=== PATIENT | male | born 1955 | race Caucasian/White ===

== ENCOUNTER → 2016-12-24 | Outpatient (CLI) | payer BC ==
[2016-12-24 13:16] LABS: HEMATOCRIT 45.4 % (42-52); MEAN CELL VOLUME 95.4 fL (80-100); MEAN CORPUSCULAR HEMOGLOBIN 30.7 pg (25-34); MEAN CORPUSCULAR HGB CONC 32.2 g/dl (32-36); MEAN PLATELET VOLUME 10.8 fL (7.4-10.4); PLATELET COUNT 283 K/uL (130-400); RED BLOOD COUNT 4.76 M/uL (4.7-6.1); WHITE BLOOD COUNT 6.92 K/uL (4.8-10.8)
[2016-12-24 13:59] LABS: BLOOD UREA NITROGEN 11 mg/dl (7-18); BUN/CREATININE RATIO 9.3 (10-20); CALCIUM 9.2 mg/dl (8.5-10.1); CARBON DIOXIDE 27 mmol/L (21-32); CHLORIDE 106 mmol/L (98-107); CHOLESTEROL 216 mg/dl (0-200); GLUCOSE 91 mg/dl (70-99); SODIUM 139 mmol/L (136-145)
[2016-12-24 14:04] LABS: CHOLESTEROL/HDL RATIO 3.6; HDL CHOLESTEROL 60 mg/dl; LDL CHOLESTEROL CALCULATED 116 mg/dl; TRIGLYCERIDES 200 mg/dl (0-150); VERY LOW DENSITY LIPOPROT CALC 40 mg/dl
== END | disposition home or self-care (01) ==
LOC: C.LABSPEC 11:59
PROVIDERS: ATTEND Internal Medicine
DX: Z12.5 Encounter for screening for malignant neoplasm of prostate (principal); Z13.1 Encounter for screening for diabetes mellitus; K22.2 Esophageal obstruction; E78.5 Hyperlipidemia, unspecified

== ENCOUNTER → 2017-03-21 | Outpatient (CLI) | payer BC | END | disposition home or self-care (01) | LOC: C.LAB1850 13:26 | PROVIDERS: ATTEND Internal Medicine | DX: R97.20 Elevated prostate specific antigen [PSA] (principal) ==

== ENCOUNTER → 2017-06-18 | Outpatient (CLI) | payer BC | END | disposition home or self-care (01) | LOC: C.PATHSPEC 17:45 | PROVIDERS: ATTEND Urology | DX: C61 Malignant neoplasm of prostate (principal) ==

== ENCOUNTER → 2017-10-21 | Outpatient (CLI) | payer BC, OTHER ==
[~2017-10-21] MED LIST: GADAVIST IV PRN; MULT-506 PO; PRLSR20 PO
--- NOTE | 2017-10-21 09:56 | DIAGNOSTIC IMAGING REPORT ---
PROSTATE MRI WITH AND WITHOUT INTRAVENOUS CONTRAST HISTORY: Prostate cancer. Evaluate Hydrogel placement TECHNIQUE: Multiplanar multisequence MRI of the pelvis was performed both before and after the intravenous administration of contrast. COMPARISON STUDY: None. FINDINGS: The patient is status post placement of a hydrogel spacer. The gel is midline between the prostate gland and rectum with an average thickness of approximately 8 mm. The visualized bladder is unremarkable. The prostate gland measures approximately 5.1 x 3.0 x 4.1 cm in size. The rectum is within normal limits. No pelvic lymphadenopathy. Tiny fat-containing bilateral inguinal hernias. Small bilateral hydroceles. No suspicious osseous lesions. Evaluation of the prostate gland for a lesion is nondiagnostic due to the metallic artifact from the left hip prosthesis. IMPRESSION: The patient is status post placement of a hydrogel spacer. The gel is midline between the prostate gland and rectum with an average thickness of approximately 8 mm. Electronically signed by: Denzel Garrido M.D. 10/21/2017 9:54 AM Dictated Date/Time: 10/21/2017 9:50 AM
== END | disposition home or self-care (01) ==
LOC: C.MRIBC 07:50
PROVIDERS: ATTEND Physician Assistant Medical
DX: C61 Malignant neoplasm of prostate (principal)

== ENCOUNTER 2019-05-14 16:59 | Observation (INO) ==
[2019-05-14] MEDS ORDERED: ASPIRIN CHEW 324 MG PO STA (17:30)
[2019-05-14] MEDS ORDERED: SODIUM CHLORIDE 0.9% 1000ML 1,000 ML IV SCH (17:30)
[2019-05-14 17:37] LABS: Basophils # (auto) 0.03 K/uL (0-0.2); Basophils % (auto) 0.4 %; Eosinophils # (auto) 0.49 K/uL (0-0.5); Eosinophils % (auto) 6.5 %; Hematocrit (blood only) 43.5 % (42-52); Hemoglobin 14.5 g/dL (14.0-18.0); Immature Granulocytes # (auto) 0.01 K/uL (0.00-0.02); Immature Granulocytes % (auto) 0.1 %; Lymphocytes # (auto) 2.03 K/uL (1.2-3.4); Lymphocytes % (auto) 27.1 %; Mean Corpuscular Hemoglobin 32.2 pg (25-34); Mean Corpuscular Hgb Conc 33.3 g/dL (32-36); Mean Corpuscular Volume 96.7 fL (80-100); Monocytes # (auto) 0.76 K/uL (0.11-0.59); Monocytes % (auto) 10.1 %; Neutrophils # (auto) 4.18 K/uL (1.4-6.5); Neutrophils % (auto) 55.8 %; Platelet Count 237 K/uL (130-400); RDW Coefficient of Variation 13.8 % (11.5-14.5)
[2019-05-14 17:48] LABS: Partial Thromboplastin Ratio 0.9; Partial Thromboplastin Time 24.2 Seconds (21.0-31.0); Prothrombin Time 10.3 Seconds (9.0-12.0)
[2019-05-14 17:58] LABS: Albumin Globulin Ratio 0.9 (0.9-2); Albumin Level 3.7 gm/dl (3.4-5.0); BUN Creatinine Ratio 10.9 (10-20); Bilirubin,Total 0.4 mg/dl (0.2-1); Calcium 9.1 mg/dl (8.5-10.1); Creatinine Clr Calc Pharmacy 59.6 ml/min; Est GFR (African American) 63.6; Est GFR (Non-African American) 54.9; Globulin 4.2 gm/dl (2.5-4.0); Total Protein 7.9 gm/dl (6.4-8.2); Troponin I 0.067 ng/ml (0-0.045)
--- NOTE | 2019-05-14 18:17 | XRay Report ---
XR chest 1V portable CLINICAL HISTORY: Chest Pain dyspnea COMPARISON STUDY: No previous studies for comparison. FINDINGS: The bones soft tissues and hemidiaphragms are normal. The cardiomediastinal silhouette is n ormal. The lungs are clear. The pulmonary vasculature is normal. IMPRESSION: Negative chest. ACT 112: Negative or not required by law. The above report was generated using voice recognition software. It may contain grammatical, syntax or spelling errors. Electronically signed by: Fran Song M.D. 05/14/2019 6:16 PM
[2019-05-14 18:28] LABS: Potassium 3.9 mmol/L (3.5-5.1)
[2019-05-14] MEDS ORDERED: HEPARIN SODIUM/DEXTROSE 25,000 UNITS/500 ML BAG IV SCH (18:30)
[2019-05-14] MEDS: Heparin IV Low Dose WITH Bolus IV STA ×2 (18:40→18:49)
[2019-05-14] MEDS ORDERED: HEPARIN SOD 5,000 UNIT/0.5 ML VIAL ONE (18:44)
--- NOTE | 2019-05-14 21:25 | History & Physical Report ---
Date of Service May 14, 2019 Assessment & Plan (1) Non-ST elevation MS (NSTEMI): Admit to PCU on telemetry. Vital signs every [address] Consult cardi[address] for ST segment and T wave abnormalities and possible NSTEMI. Troponin x3 with EKG. Started heparin drip in the ER for elevated troponin. Trend down troponin. Given aspirin 324 in the ER. Continue aspirin 81 daily. Continue telemetry. DVT prophylaxis patient is on heparin drip. TTE pending Full code. Present on Admission?: Yes (2) Hyperlipidemia: Fasting lipid panel in a.m. Pending on the results start statins. Patient was on statins before. Present on Admission?: Yes (3) GERD (gastroesophageal reflux disease): Stable, continue omeprazole 20 mg p.o. daily as needed. Present on Admission?: Yes History of Present Illness Chief Complaint: Shortness of breath Primary Care Provider: Benny Neumann MD The patient is a 65 years old male with past medical history of hyperlipidemia, GERD, prostate cancer, esophageal stricture who presents to the emergency room stating that he is often short of breath in the past 3 weeks. 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 Patient denies gaining any weight. Patient denies fever, chills, chest pain, shortness of breath, abdominal pain, frequency, urgency. Patient reports ST segment and T waves abnormalities seen before on the prior EKGs and he reports having very extensive evaluation and stress testing in the past for it. 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 Labs are reviewed: WBC 7.5, hemoglobin 14.5, hematocrit 43.5, platelets 237, PT 10.3, INR 1, APTT 24.2. Sodium 138, potassium 3.9, chloride 106, carbon dioxide 26, anion gap 6, BUN 15, creatinine 1.37, GFR 54.9, AST 11, ALT 34, troponin 0.0 67, total protein 7.9, albumin 3.7, globulin 4.2, lipase 417. Chest x-ray negative, lungs are clear. EKG reviewed and compared with the previous EKG. Shows sinus rhythm with first-degree AV block and ST and T wave abnormality possible anterolateral ischemia. Decision was made to admit patient to the PCU on telemetry and to rule out NSTEMI Allergies Allergy/AdvReac Type Severity Reaction Status Date / Time No Known Allergies Allergy Verified 05/14/19 17:35 Home Medications Home Medications Medication Instructions Recorded Confirmed Type omeprazole 20 mg PO DAILY PRN 05/14/19 05/14/19 History Past Med/Surg History Medical History Esophageal stricture GERD (gastroesophageal reflux disease) Hyperlipidemia Nephrolithiasis Surgical History History of throat surgery S/P hip replacement Family History Father Myocardial infarction Dementia Grandfather (Maternal) Myocardial infarction Grandfather (Paternal) Myocardial infarction Mother Brain cancer Denies family history of Ovarian cancer Prostate cancer Breast cancer Lung cancer Colorectal cancer Stroke Social History Preferred Language: Yakut Communication Ability: Effective Visual Impairment: No Limitations Hearing Ability: Normal Budget Controller Required: No Beliefs That Will Affect Care: None Feels Safe at Home: Yes Smoking Status: Never smoker Second Hand Exposure: No ; Hx Alcohol Use: Yes Alcohol type: beer Alcohol Intake Frequency: Weekly Hx Substance Use: No Childhood Exposure to Second-Hand Smoke: Yes (parents) Review of Systems Review of Systems: All systems reviewed & are unremarkable except as noted in HPI & below Physical Exam Constitutional: WD/WN, vitals as above well developed Eyes: PERRL, conjunctivae normal, anicteric sclerae ENMT: external ear and nose normal, oropharynx normal Neck: trachea midline, no thyromegaly Respiratory: normal respiratory effort, lungs clear to auscultation Cardiovascular: RRR, no murmur, no edema Gastrointestinal (Abdomen): normal bowel sounds, soft, nontender, no hepatosplenomegaly Musculoskeletal: no cyanosis or clubbing, extremities motor strength 5/5 Skin: no rashes, warm and dry Neurologic: patellar DTR's 2+ bilat, sensation intact Lymphatic: no cervical or axillary lymphadenopathy Results & Data Vital Signs (Past 12 Hours) Vital Signs Temp Pulse Resp BP Pulse Ox 05/14/19 20:31 56 L 20 142/61 H 97 05/14/19 20:30 60 23 93 05/14/19 20:01 59 L 20 96 05/14/19 20:00 61 22 159/97 H 98 05/14/19 19:31 63 16 98 05/14/19 19:30 60 20 160/91 H 96 05/14/19 19:01 60 19 151/88 H 97 05/14/19 19:00 58 L 20 96 05/14/19 18:31 61 20 169/81 H 95 05/14/19 18:30 20 93 05/14/19 18:01 63 21 95 05/14/19 18:00 62 19 132/106 H 93 05/14/19 17:30 65 160/90 H 98 05/14/19 17:23 73 22 98 05/14/19 17:16 72 22 166/95 H 98 05/14/19 17:04 36.9 C 70 18 179/92 H 98 Code Status & VTE Plan Code Status Full code VTE Prophylaxis Plan VTE Prophylaxis will be ordered: Yes PG Care Time/CCT Total # of Minutes Spent Total Time Spent with Patient: Total time spent is greater than 50% in coordination of care (as documented) at patient's floor/unit and/or counseling patient: Coding Level of Care Code 04106 Initial Inpt Care Lvl 3 Diagnoses Non-ST elevation MS (NSTEMI) I21.4 Hyperlipidemia E78.5 GERD (gastroesophageal reflux disease) K21.9
[2019-05-14] MEDS ORDERED: MoRPHine SULFATE 2 MG/ML CARP IV PRN (21:40)
[2019-05-14] MEDS ORDERED: ONDANSETRON INJ 2 MG/ML 2 ML VIAL IV PRN (21:40)
[2019-05-14] MEDS ORDERED: MAGNESIUM HYDROXIDE SUSP 30 ML UDC PO PRN (21:40)
[2019-05-14] MEDS ORDERED: ACETAMINOPHEN 325 MG TAB PO PRN (21:40)
[2019-05-14] MEDS ORDERED: PANTOprazole 40 MG TAB PO PRN (21:40)
[2019-05-14] MEDS ORDERED: ALUMINUM/MAGNESIUM SUSP 30 ML UDC PO PRN (21:40)
[2019-05-14] MEDS ORDERED: POLYETHYLENE (MIRALAX) 17 GM PACK PO PRN (21:40)
[2019-05-14] MEDS ORDERED: NITROGLYCERIN SL 0.4 MG/TAB TAB SL PRN (21:40)
--- NOTE | 2019-05-14 21:54 | Emergency Department Note ---
Entered by Sofya Morrell acting as a scribe for History of Present Illness General Chief complaint: Abnormal Labs/Diagnostic Testing Stated complaint: ABN EKG, SOB Source: patient Mode of arrival: ambulatory Limitations: no limitations History of Present Illness Onset (ago): week(s) 5 Location: chest Radiation: non-radiation Pain Consistency: + intermittent Maximum Pain Intensity: 0 Relieved By: + none Exacerbated By: + movement Associated symptoms: + shortness of breath; no chest pain Treatments prior to arrival: none The patient is a 64 year old male who presents to the ED with complaints of an abnormal EKG. He states he has noticed shortness of breath for the past few weeks, especially with exertion. In February 2019, he developed a chest cold and states it took a while for him to recover. The patient states he has a history of abnormal EKG's with "inverted T-waves" and states he was told by a Director [employer] that he has "an athletic heart". Earlier today, the patient went to see his doctor and was referred here to the ED after he produced another abnormal EKG. He denies any recent chest pain. He is a nonsmoker but states there is a family history of heart disease. Home Medications Home Medications Medication Instructions Recorded Confirmed Type omeprazole 20 mg PO DAILY PRN 05/14/19 05/14/19 History Allergies Allergy/AdvReac Type Severity Reaction Status Date / Time No Known Allergies Allergy Verified 05/14/19 17:35 Past Med/Surg History Medical History Esophageal stricture GERD (gastroesophageal reflux disease) Hyperlipidemia Nephrolithiasis Surgical History History of throat surgery S/P hip replacement Family History Father Myocardial infarction Dementia Grandfather (Maternal) Myocardial infarction Grandfather (Paternal) Myocardial infarction Mother Brain cancer Denies family history of Ovarian cancer Prostate cancer Breast cancer Lung cancer Colorectal cancer Stroke Social History Preferred Language: Hungarian Communication Ability: Effective Visual Impairment: No Limitations Hearing Ability: Normal 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 and A total of 10 systems reviewed and were otherwise negative Physical Exam Vital Signs Vital Signs - 24 hr 05/14/19 17:04 05/14/19 17:16 05/14/19 17:23 Temperature 36.9 C Temperature Source Oral Pulse Rate 70 72 73 Pulse Rate from SpO2 Sensor 72 73 Respiratory Rate 18 22 22 Respiratory Effort / Characteristics Non-Labored Spontaneous Respiratory Depth Normal Respiratory Pattern Regular Blood Pressure 179/92 H 166/95 H Blood Pressure Mean 121 119 Blood Pressure Position Sitting Pulse Oximetry 98 98 98 Oxygen Delivery Method Room Air Sepsis Recent Fever Within 48 Hours No Sepsis New/Unexplained Change in Mental Status No Sepsis Action Taken by Nursing No Action Required 05/14/19 17:30 05/14/19 18:00 05/14/19 18:01 Temperature Temperature Source Pulse Rate 65 62 63 Pulse Rate from SpO2 Sensor 64 62 63 Respiratory Rate 19 21 Respiratory Effort / Characteristics Respiratory Depth Respiratory Pattern Blood Pressure 160/90 H 132/106 H Blood Pressure Mean 101 113 Blood Pressure Position Pulse Oximetry 98 93 95 Oxygen Delivery Method Sepsis Recent Fever Within 48 Hours Sepsis New/Unexplained Change in Mental Status Sepsis Action Taken by Nursing 05/14/19 18:30 05/14/19 18:31 05/14/19 19:00 Temperature Temperature Source Pulse Rate 61 58 L Pulse Rate from SpO2 Sensor 62 63 58 L Respiratory Rate 20 20 20 Respiratory Effort / Characteristics Respiratory Depth Respiratory Pattern Blood Pressure 169/81 H Blood Pressure Mean 99 Blood Pressure Position Pulse Oximetry 93 95 96 Oxygen Delivery Method Sepsis Recent Fever Within 48 Hours Sepsis New/Unexplained Change in Mental Status Sepsis Action Taken by Nursing 05/14/19 19:01 05/14/19 19:30 05/14/19 19:31 Temperature Temperature Source Pulse Rate 60 60 63 Pulse Rate from SpO2 Sensor 60 61 64 Respiratory Rate 19 20 16 Respiratory Effort / Characteristics Respiratory Depth Respiratory Pattern Blood Pressure 151/88 H 160/91 H Blood Pressure Mean 100 115 Blood Pressure Position Pulse Oximetry 97 96 98 Oxygen Delivery Method Sepsis Recent Fever Within 48 Hours Sepsis New/Unexplained Change in Mental Status Sepsis Action Taken by Nursing GENERAL: Patient is sitting up in bed, alert, well nourished, no distress, non- toxic EYE EXAM: normal conjunctiva OROPHARYNX: no exudate, no erythema, lips, buccal mucosa, and tongue normal and mucous membranes are moist NECK: supple, no nuchal rigidity, no adenopathy, non-tender LUNGS: Clear to auscultation. Normal chest wall mechanics HEART: no murmurs, S1 normal and S2 normal ABDOMEN: abdomen soft, non-tender, normo-active bowel sounds, no masses, no rebound or guarding. BACK: Back is symmetrical on inspection and there is no deformity, no midline tenderness, no CVA tenderness. SKIN: no rashes and no bruising UPPER EXTREMITIES: upper extremities are grossly normal. LOWER EXTREMITIES: No pitting edema. Calves are equal bilaterally. NEURO EXAM: Normal sensorium, cranial nerves II-XII grossly intact, normal speech, no gross weakness of arms, no gross weakness of legs. Gross sensation intact. Course Course ED COURSE: Vital signs were reviewed and showed the patient is hypertensive. The patients medical record was reviewed The above diagnostic studies were performed and reviewed. ED treatments and interventions as stated above. 1722: The patient was evaluated in room C5. A complete history and physical examination was performed. 1755: Upon reevaluation, the patient is. I discussed my findings with the patient and he understands and agrees with the treatment plan. He denies any previous brain bleeds, brain surgery, coughing blood, pooping blood, peeing blood or any recent trauma. 1815: I discussed the patients case with Dr. Agarwal, [facility] Hospitalist. The patient will be further evaluated. 0: I discussed the patients case with Dr. Feliciano, [facility] Cardiology. The patient will be further evaluated. Based on the patients age, coexisting illnesses, exam and lab findings the decision to treat as an inpatient was made. The patient remained stable while under my care. The patient will be evaluated for further management. Administered Medications Heparin Sodium/Dextrose (Heparin Sodium/Dextrose) 25,000 units in 500 mls @ 18 mls/hr IV .Q24H [facility]; Protocol Stop: 06/13/19 18:29 Last Admin: 05/14/19 18:39 Dose: 900 units/hr, 18 mls/hr Documented by: [id number] Cosigned by: [id number] Discontinued Medications Aspirin (Aspirin) 324 mg PO NOW STA Stop: 05/14/19 17:31 Last Admin: 05/14/19 17:59 Dose: 324 mg Documented by: [id number] Heparin Sodium (Porcine) (Heparin Sodium (Porcine)) Confirm Administered Dose 5,000 units .ROUTE .STK-MED ONE Stop: 05/14/19 18:45 Last Admin: 05/14/19 18:47 Dose: 4,000 units Documented by: [id number] Cosigned by: [id number] Heparin Sodium/Dextrose () 1 ea IV NOW STA; Protocol Stop: 05/14/19 18:18 Last Admin: 05/14/19 18:49 Dose: Not Given Documented by: [id number] Sodium Chloride (Nss 1000ml) 1,000 mls @ 999 mls/hr IV .Q1H1M [place] Stop: 05/14/19 18:30 Last Infusion: 05/14/19 20:18 Dose: 0 mls/hr Documented by: [id number] Admin: 05/14/19 17:59 Dose: 999 mls/hr Documented by: [id number] Critical Care Time Critical Care Time: Yes Total Critical Care Time: 40 I have personally spent 40 minutes of critical care time in the direct management of this patient. This includes bedside care, interpretation of diagnostic studies, and testing, discussion with consultants, patient, and family members, and other required patient management activities. This 40 minutes is in excess of all separately billable procedures. Medical Decision Making Differential Diagnosis Differential diagnoses includes but is not limited to acute coronary syndrome, myocardial infarction, pericarditis, pulmonary embolus, aortic dissection, pneumonia, pneumothorax, musculoskeletal, shingles, esophageal. Medical Records Attestation: I reviewed the patient's medical records. Home Medications Current Medication List: was personally reviewed by me Laboratory Data Attestation: I reviewed the patient's lab results. Result diagrams: 05/14/19 17:25 05/14/19 18:02 Lab Results 05/14/19 05/14/19 05/14/19 Range/Units 17:25 17:25 17:25 WBC 7.50 (4.8-10.8) K/uL RBC 4.50 L (4.7-6.1) M/uL Hgb 14.5 (14.0-18.0) g/dL Hct 43.5 (42-52) % MCV 96.7 (80-100) fL MCH 32.2 (25-34) pg MCHC 33.3 (32-36) g/dL RDW Std Deviation 49.0 H (36.4-46.3) fL RDW Coeff of Davida 13.8 (11.5-14.5) % Plt Count 237 (130-400) K/uL MPV 10.0 (7.4-10.4) fL Immature Gran % (Auto) 0.1 % Neut % (Auto) 55.8 % Lymph % (Auto) 27.1 % [place] % (Auto) 10.1 % Eos % (Auto) 6.5 % Baso % (Auto) 0.4 % Immature Gran # (Auto) 0.01 (0.00-0.02) K/uL Neut # (Auto) 4.18 (1.4-6.5) K/uL Lymph # (Auto) 2.03 (1.2-3.4) K/uL [place] # (Auto) 0.76 H (0.11-0.59) K/uL Eos # (Auto) 0.49 (0-0.5) K/uL Baso # (Auto) 0.03 (0-0.2) K/uL PT 10.3 (9.0-12.0) Seconds INR 1.0 (0.9-1.1) APTT 24.2 (21.0-31.0) Seconds PTT Ratio 0.9 Sodium 138 (136-145) mmol/L Potassium (3.5-5.1) mmol/L Chloride 106 (98-107) mmol/L Carbon Dioxide 26 (21-32) mmol/L Anion Gap 6.0 (3-11) BUN 15 (7-18) mg/dl Creatinine 1.37 (0.6-1.4) mg/dl Est Cr Clr Drug Dosing 59.6 ml/min Est GFR ( Amer) 63.6 Est GFR (Non-Af Amer) 54.9 BUN/Creatinine Ratio 10.9 (10-20) Glucose 92 (70-99) mg/dl Calcium 9.1 (8.5-10.1) mg/dl Total Bilirubin 0.4 (0.2-1) mg/dl AST (15-37) U/L ALT 34 (12-78) U/L Alkaline Phosphatase 96 (45-117) U/L Troponin I 0.067 H* (0-0.045) ng/ml Total Protein 7.9 (6.4-8.2) gm/dl Albumin 3.7 (3.4-5.0) gm/dl Globulin 4.2 H (2.5-4.0) gm/dl Albumin/Globulin Ratio 0.9 (0.9-2) Lipase 417 H (73-393) U/L 05/14/19 Range/Units 18:02 WBC (4.8-10.8) K/uL RBC (4.7-6.1) M/uL Hgb (14.0-18.0) g/dL Hct (42-52) % MCV (80-100) fL MCH (25-34) pg MCHC (32-36) g/dL RDW Std Deviation (36.4-46.3) fL RDW Coeff of Davida (11.5-14.5) % Plt Count (130-400) K/uL MPV (7.4-10.4) fL Immature Gran % (Auto) % Neut % (Auto) % Lymph % (Auto) % [place] % (Auto) % Eos % (Auto) % Baso % (Auto) % Immature Gran # (Auto) (0.00-0.02) K/uL Neut # (Auto) (1.4-6.5) K/uL Lymph # (Auto) (1.2-3.4) K/uL [place] # (Auto) (0.11-0.59) K/uL Eos # (Auto) (0-0.5) K/uL Baso # (Auto) (0-0.2) K/uL PT (9.0-12.0) Seconds INR (0.9-1.1) APTT (21.0-31.0) Seconds PTT Ratio Sodium (136-145) mmol/L Potassium 3.9 (3.5-5.1) mmol/L Chloride (98-107) mmol/L Carbon Dioxide (21-32) mmol/L Anion Gap (3-11) BUN (7-18) mg/dl Creatinine (0.6-1.4) mg/dl Est Cr Clr Drug Dosing ml/min Est GFR ( Amer) Est GFR (Non-Af Amer) BUN/Creatinine Ratio (10-20) Glucose (70-99) mg/dl Calcium (8.5-10.1) mg/dl Total Bilirubin (0.2-1) mg/dl AST 11 L (15-37) U/L ALT (12-78) U/L Alkaline Phosphatase (45-117) U/L Troponin I (0-0.045) ng/ml Total Protein (6.4-8.2) gm/dl Albumin (3.4-5.0) gm/dl Globulin (2.5-4.0) gm/dl Albumin/Globulin Ratio (0.9-2) Lipase (73-393) U/L Imaging Data Radiologist's Impression: Radiology results as stated below per my review and the radiologist's interpretation: XR chest 1V portable CLINICAL HISTORY: Chest Pain dyspnea COMPARISON STUDY: No previous studies for comparison. FINDINGS: The bones soft tissues and hemidiaphragms are normal. The cardiomediastinal silhouette is normal. The lungs are clear. The pulmonary vasculature is normal. IMPRESSION: Negative chest. ACT 112: Negative or not required by law. The above report was generated using voice recognition software. It may contain grammatical, syntax or spelling errors. Electronically signed by: Fran Song M.D. 05/14/2019 6:16 PM ECG Data Attestation: I personally reviewed and interpreted this ECG as follows: Indication: + SOB/dyspnea Rate (beats per minute): 74 Rhythm: + sinus rhythm ECG Intervals/blocks: + First degree AV block ECG [place]: + Normal ECG ST segments: + T-wave inversions (Lateral) and + Nonspecific ST abnormalities (in lead 5) ECG Findings: + Other (Poor baseline) Additional Comments: EKG from 05/14/2019 office visit: Sinus rhythm rate of 64, TWI in high lateral leads, ST depressions and TWI in leads V4 to V6 Blood Pressure Blood Pressure Findings: Elevated blood pressure Blood Pressure Disposition: further management by hospitalist DEE Narrative Patient is a 64-year-old male with a past medical history of hyperlipidemia that presents the ER for exertional shortness of breath referred in by his PCP following having an abnormal EKG performed. EKG showed T WI in the lateral leads with ST depressions as well as the high lateral leads. Labs show no significant leukocytosis or anemia. INR unremarkable. BMP along with LFTs and bilirubin was negative. Troponin was detectable at 0.067. Lipase was slightly elevated at 417. Chest x-ray was unremarkable. EKG as stated. Patient was completely asymptomatic while in the ER. Did consider LVH initially but with his shortness of breath with exertion do favor that this is likely an end STEMI. Patient was initially given aspirin. He was placed on heparin drip and bolus as the EKG from the office did show fair amount of ST wave changes. Patient was updated bedside. Discussed with cardiology. Patient was admitted to the hospital for likely NSTEMI with exertional dyspnea being his anginal equivalent. Impression & Plan Non-ST elevation NM (NSTEMI), Exertional shortness of breath, Abnormal EKG Discharge Plan Visit Data *Final* Discharge Date/Time: 05/14/19 19:40 Chief Complaint: Abnormal Labs/Diagnostic Testing Stated Complaint: ABN EKG, SOB ED Provider: Lyndon Hutchison Discharge Problem: Non-ST elevation NM (NSTEMI), Exertional shortness of breath, Abnormal EKG Patient Disposition: Admitted As Inpatient The marissa's documentation has been prepared under my direction and personally reviewed by me in its entirety. I confirm that the note above accurately reflects all work, treatment, procedures, and medical decision making performed by me.
[2019-05-14 22:45] LABS: Thyroid Stimulating Hormone 2.1 uIu/ml (0.300-4.500); Troponin I 0.07 ng/ml (0-0.045)
[2019-05-14] MEDS: NITROGLYCERIN 2% OINTMENT 30GM TUBE EXT SCH (23:07)
[2019-05-14] MEDS ORDERED: INFLUENZA VIRUS QUAD VACCINE 0.5 ML SYR IM ONE (23:58)
[2019-05-14] MEDS ORDERED: INFLUENZA ADMINISTRATION CHARGE ONE (23:58)
[2019-05-15 00:30] LABS: Partial Thromboplastin Ratio 1.2; Partial Thromboplastin Time 33.3 Seconds (21.0-31.0)
[2019-05-15] MEDS ORDERED: HEPARIN IV BOLUS 4,500 UNITS in SYRINGE 0 ML IV ONE (01:45)
[2019-05-15 03:54] LABS: Basophils # (auto) 0.04 K/uL (0-0.2); Basophils % (auto) 0.6 %; Eosinophils # (auto) 0.61 K/uL (0-0.5); Eosinophils % (auto) 8.7 %; Hematocrit (blood only) 38.1 % (42-52); Hemoglobin 12.7 g/dL (14.0-18.0); Immature Granulocytes # (auto) 0.01 K/uL (0.00-0.02); Immature Granulocytes % (auto) 0.1 %; Lymphocytes # (auto) 2.43 K/uL (1.2-3.4); Lymphocytes % (auto) 34.5 %; Mean Corpuscular Hemoglobin 32.2 pg (25-34); Mean Corpuscular Hgb Conc 33.3 g/dL (32-36); Mean Corpuscular Volume 96.5 fL (80-100); Mean Platelet Volume 9.9 fL (7.4-10.4); Monocytes # (auto) 0.67 K/uL (0.11-0.59); Monocytes % (auto) 9.5 %; Neutrophils # (auto) 3.28 K/uL (1.4-6.5); Neutrophils % (auto) 46.6 %; Platelet Count 217 K/uL (130-400); RDW Coefficient of Variation 13.7 % (11.5-14.5); RDW Standard Deviation 48.8 fL (36.4-46.3); Red Blood Count 3.95 M/uL (4.7-6.1); White Blood Count 7.04 K/uL (4.8-10.8)
[2019-05-15 04:12] LABS: Albumin Level 2.9 gm/dl (3.4-5.0); BUN Creatinine Ratio 11.2 (10-20); Calcium 8.6 mg/dl (8.5-10.1); Est GFR (African American) 74.7; Est GFR (Non-African American) 64.4; Potassium 3.7 mmol/L (3.5-5.1)
[2019-05-15 04:27] LABS: Albumin Globulin Ratio 0.9 (0.9-2); Bilirubin,Total 0.3 mg/dl (0.2-1); Globulin 3.2 gm/dl (2.5-4.0); Total Protein 6.1 gm/dl (6.4-8.2)
[2019-05-15 04:59] LABS: Troponin I 0.066 ng/ml (0-0.045)
[2019-05-15 06:15] LABS: Estimated Average Glucose 114 mg/dl; Hemoglobin A1C 5.6 % (4.5-5.6)
[2019-05-15] MEDS: NITROGLYCERIN 2% OINTMENT 30GM TUBE EXT SCH (06:19)
[2019-05-15] MEDS ORDERED: ASPIRIN 81 MG ECTAB PO SCH (09:00)
[2019-05-15 09:11] LABS: Partial Thromboplastin Ratio 1.7
[2019-05-15 09:33] LABS: Troponin I 0.07 ng/ml (0-0.045)
--- NOTE | 2019-05-15 09:38 | Hospitalist Progress Note ---
Date of Service May 15, 2019 Assessment & Plan Admission and Anticipated Discharge Date Admission Date: May 14, 2019 Results & Data ([facility]) Vital Signs (Past 12 Hours) Vital Signs Temp Pulse Resp BP Pulse Ox 05/15/19 07:03 36.6 C 53 L 20 127/68 94 05/15/19 02:57 36.4 C L 55 L 18 127/72 95 05/14/19 23:44 36.2 C L 61 18 153/87 H 05/14/19 23:11 36.4 C L 73 16 144/70 H 96 PG Care Time/CCT Total # of Minutes Spent Total Time Spent with Patient: Total time spent is greater than 50% in coordination of care (as documented) at patient's floor/unit and/or counseling patient: Coding
--- NOTE | 2019-05-15 10:02 | XCELERA ---
[id number] \\[id number]
[2019-05-15] MEDS ORDERED: lisinopriL 20 MG TAB PO ONE (10:45)
[2019-05-15 10:49] VITALS: TEMP 98.4
[2019-05-15] MEDS ORDERED: CETIRIZINE HCL 10 MG TABLET PO ONE (12:25)
[2019-05-15] MEDS ORDERED: ALBUTEROL HFA 8 GM INHALER INH PRN (12:26)
--- NOTE | 2019-05-15 13:06 | Cardiology Consultation ---
Date of Consultation May 15, 2019 Assessment & Plan (1) Elevated troponin: Suspect this is related to a supply demand mismatch realizing his elevated blood pressure at time of presentation in face of his known LVH. No further cardiac evaluation necessary. (2) Abnormal EKG: EKG changes consistent with left ventricular hypertrophy and repolarization changes. No further cardiac evaluation necessary. (3) Exertional shortness of breath: This only occurs with abrupt, vigorous physical activity. Could consider outpatient PFTs to rule out asthma. (4) LVH (left ventricular hypertrophy): Mild LVH noted on current echocardiogram. History of Present Illness Attending Physician: Chely Lee MD History of Present Illness Mr. Lorenzo is a 64-year-old male admitted yesterday with exertional dyspnea, an abnormal EKG, and a mildly elevated troponin.. This consultation was ordered to assist in his management. The patient was in his usual state of health until approximately 2-3 months ago. At that time, he began to note exertional dyspnea if he abruptly performed vigorous physical activity (climbing 1 or 2 flight of stairs quickly from a resting position). This complaint has persisted since that time. The patient was seen in his primary care office yesterday without complaint. An EKG was performed which noted normal sinus rhythm and lateral ST and T-wave depressions. He was sent to the emergency room for further care. The patient was admitted and placed on intravenous heparin and topical nitrates. At no time has the patient experienced exertional chest pain. In fact, he exercises for 40-50 minutes every day with a personal injury paralegal. He has never experienced angina pectoris or limiting dyspnea during exercise sessions. He further denies syncope, presyncope, PND, orthopnea, palpitations, lower extremity edema, and claudication. The patient explains that he was told over 30 years ago that he had an athletic heart. He was told that his left ventricular wall thickness was increased. He underwent a full evaluation including a stress test at that time. This workup was again performed back in 2004. The patient's other complaint is that he experiences a cough if he breathes in deeply. This has been present since an upper respiratory infection back in February. Of note, the patient is concerned that he may have recurrence of his asthma which was diagnosed during childhood. The patient does not follow blood pressures routinely at home. Past medical and surgical history 1. Hypertension 2. Left ventricle hypertrophy 3. Hypercholesterolemia 4. GERD 5. Nephrolithiasis 6. Esophageal stricture 7. Prostate carcinoma-XRT, 2018 8. Left THR-2004 9. Erectile dysfunction 10. History of asthma Social history and lives with his Owns a [email or web address] company No tobacco Occasional alcohol Family history Father at 88 from dementia. Had an ME in his 60s Mother at 40 from glioblastoma multiform Siblings are alive and well Review of systems A 10 point review of systems was negative except for that described above. Allergies Allergy/AdvReac Type Severity Reaction Status Date / Time No Known Allergies Allergy Verified 05/14/19 17:35 Home Medications Home Medications Medication Instructions Recorded Confirmed Type omeprazole 20 mg PO DAILY PRN 05/14/19 05/14/19 History Patient History Medical History Esophageal stricture GERD (gastroesophageal reflux disease) Hyperlipidemia Nephrolithiasis Surgical History History of throat surgery S/P hip replacement Family History Father Myocardial infarction Dementia Grandfather (Maternal) Myocardial infarction Grandfather (Paternal) Myocardial infarction Mother Brain cancer Denies family history of Ovarian cancer Prostate cancer Breast cancer Lung cancer Colorectal cancer Stroke Social History Preferred Language: Tongan Communication Ability: Effective Visual Impairment: No Limitations Hearing Ability: Normal Line Tester Required: No Beliefs That Will Affect Care: None Current Living Situation: Family Other Information That Helps Us Care for You: No (Special needs son) Feels Safe at Home: Yes Safety Concerns: Feels Safe At This Time Smoking Status: Never smoker Do You Dip or Chew Tobacco: No ; Second Hand Exposure: No ; Tobacco Cessation Education Requested by Patient: No Hx Alcohol Use: Yes Alcohol type: beer Alcohol Intake Frequency: Weekly Hx Substance Use: No Childhood Exposure to Second-Hand Smoke: Yes (parents) Physical Exam Physical Exam: In general this is a well-developed well-nourished white male in no acute distress. HEENT exam is negative. Neck is supple with full carotid upstrokes. There are no carotid bruits. Jugular venous pressure is flat at 90. There is no thyromegaly. Cardiovascular exam reveals a regular rhythm with a normal S1 and S2. No S3, S4, or murmurs are noted. Lungs are clear without rales, rhonchi, or wheezes. Abdomen is soft and nontender without bruits. Extremities reveal intact radial artery and posterior tibial pulses bilaterally. There is no peripheral edema. Results & Data ([facility]) Vital Signs (Past 12 Hours) Vital Signs Temp Pulse Pulse Resp BP Pulse Ox 05/15/19 10:46 36.9 C 60 19 120/72 97 05/15/19 08:00 50 L 05/15/19 07:03 36.6 C 53 L 20 127/68 94 05/15/19 02:57 36.4 C L 55 L 18 127/72 95 Laboratory Results CB ECG notes hemoglobin of 12.7, crit 38.1, white count 7.04, platelet count of [id number]. Electrolytes note a sodium of 142, potassium 3.7, chloride 110, bicarb 28, BUN 13, creatinine 1.2, glucose of 94. Initial troponin was 0.067 with follow-up at values of 0.07, an 0.066. TSH is normal at 2.1. BNP is normal 52. LDL cholesterol is 121 with an HDL of 51. Diagnostic Findings EKG notes normal sinus rhythm with first-degree AV block and left ventricular hypertrophy with repolarization changes. Echocardiogram notes normal left ventricular systolic function without wall motion abnormalities. There is mild LVH. There is mild mitral and tricuspid regurgitation. Chest x-ray shows cardiomegaly but no acute disease. PG Care Time/CCT Total # of Minutes Spent Total Time Spent with Patient: Total time spent is greater than 50% in coordination of care (as documented) at patient's floor/unit and/or counseling patient: Coding Level of Care Code 84653 Office/OBS Consult Lvl 4 Diagnoses Elevated troponin R79.89 Abnormal EKG R94.31 Exertional shortness of breath R06.02 LVH (left ventricular hypertrophy) I51.7
--- NOTE | 2019-05-15 15:20 | Discharge Summary ---
Date of Service May 15, 2019 Admission HPI Per Admitting Provider The patient is a 65 years old male with past medical history of hyperlipidemia, GERD, prostate cancer, esophageal stricture who presents to the emergency room stating that he is often short of breath in the past 3 weeks. 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 Patient denies gaining any weight. Patient denies fever, chills, chest pain, shortness of breath, abdominal pain, frequency, urgency. Patient reports ST segment and T waves abnormalities seen before on the prior EKGs and he reports having very extensive evaluation and stress testing in the past for it. 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 Labs are reviewed: WBC 7.5, hemoglobin 14.5, hematocrit 43.5, platelets 237, PT 10.3, INR 1, APTT 24.2. Sodium 138, potassium 3.9, chloride 106, carbon dioxide 26, anion gap 6, BUN 15, creatinine 1.37, GFR 54.9, AST 11, ALT 34, troponin 0.0 67, total protein 7.9, albumin 3.7, globulin 4.2, lipase 417. Chest x-ray negative, lungs are clear. EKG reviewed and compared with the previous EKG. Shows sinus rhythm with first-degree AV block and ST and T wave abnormality possible anterolateral ischemia. Decision was made to admit patient to the PCU on telemetry and to rule out NSTEMI Admission Exam Per Admitting Provider Constitutional: WD/WN, vitals as above well developed Eyes: PERRL, conjunctivae normal, anicteric sclerae ENMT: external ear and nose normal, oropharynx normal Neck: trachea midline, no thyromegaly Respiratory: normal respiratory effort, lungs clear to auscultation Cardiovascular: RRR, no murmur, no edema Gastrointestinal (Abdomen): normal bowel sounds, soft, nontender, no hepatosplenomegaly Musculoskeletal: no cyanosis or clubbing, extremities motor strength 5/5 Skin: no rashes, warm and dry Neurologic: patellar DTR's 2+ bilat, sensation intact Lymphatic: no cervical or axillary lymphadenopathy Principal Diagnosis R/O NSTEMI Cough Discharge Exam Constitutional WD/WN, vitals as above no acute distress Eyes + anicteric sclerae and PERRL ENMT cobblestoned appearance posterior oropharynx with post nasal drip Neck trachea midline, no thyromegaly Respiratory normal respiratory effort, lungs clear to auscultation Cardiovascular RRR, no murmur, no edema Gastrointestinal (Abdomen) normal bowel sounds, soft, nontender, no hepatosplenomegaly Musculoskeletal no cyanosis or clubbing, extremities motor strength 5/5 calves nontender to palpation Skin no rashes, warm and dry Neurologic PERRL, EOMI, accommodation nl, no face palsy, no dysarthria Psychiatric A+Ox3, euthymic affect Genitourinary inguingal hernias, b/l --> L>R Lymphatic no cervical or axillary lymphadenopathy Discharge Data Allergies Allergy/AdvReac Type Severity Reaction Status Date / Time No Known Allergies Allergy Verified 05/20/19 15:07 Consultations 05/14/19 18:17 ED Decision to Admit Stat 05/14/19 21:40 Consult Cardiology Routine Consult Cardiology Routine Hospital Course (1) Non-ST elevation GA (NSTEMI): * Patient with SOB over the past week with associated cough, worsened by exertion. Patient with significant history of childhood asthma, exercise induced. * Seen by primary care and sent to be evaluated in ER for possible EKG changes without previous EKG. Per patient, present for quite some time. Repeat EKG unchanged. * Initially placed on heparin drip for r/o NSTEMI given st changes on EKG. Cardiology consulted. Troponin initially elevated but essentially unchanged on serial testing. 0.06, 0.07, 0.066, 0.7. Supply-demand in setting of LVH. * ECHO with normal LV systolic function. No wma. EF 60-65% Mild LVH. Mildly dilated ascending aorta (4.0cm in diameter) -- discharged on losartan to assist with BP management as per Cardiology recommendation * no further ischemic workup needed as per Cardiology * Zyrtec with rapid relief of symptoms - continued on discharge. * History of exercise induced asthma --> rec'd follow up with PCP for outpatient PFT testing * Rec daily use of protonix for possible reflux symptoms, although likely component of atopy * Lipase initially elevated at 417 on admission, but trended down on repeat. No symptomatology for pancreatitis or abdominal pain (2) Asthma: * Hx in childhood. Given cobblestoned appearance on exam and symptoms, initiated and continued on zyrtec. * Rec outpatient PFTs by PCP. * Given albuterol inhaler for wheezing/tightness prn (3) Hyperlipidemia: * Previously on statin therapy * Fasting lipid panel without abnormality. Cholesterol 190, LDL 1212, HDL 51. Triglycerides 87 (4) GERD (gastroesophageal reflux disease): * Continued home omeprazole (5) Hypertension: * Initially given dose of lisinopril, however discharged on losartan 25mg daily given cough and possible worsening given hx asthma and reported cough * BP well controlled, 117/68 (6) Inguinal hernia: * B/l on exam. Worse on side where patient states he felt he pulled a muscle while working out * CT a/p August 2017 for prostate ca with evidence of bilateral fat containing hernias * Recommended follow up outpatient for possible surgical referral if continues to cause patient any issues Total Time Total Time Spent Total Time Spent (In Minutes): 60 Discharge Plan Discharge Items Patient Disposition: Home - Self-Care Reason For Visit: NSTEMI Discharge Diagnosis: Shortness of Breath, Cough Likely due to hx asthma and allergies Condition on Discharge: Good Goals: You have been hospitalized for an acute medical problem. During your stay at [facility], we have made an effort to correct the problem that brought you to the hospital while keeping you as comfortable as possible. Medications were used to bring your condition under control and your discharge instructions will include directions for any medications you should take after leaving the hospital. Please make sure you see your Primary Care Provider as part of your follow up plan. Activity: Resume your previous activity Non-emergency contact: Primary Care Provider Call non-emergency contact if: you have any medication questions and your symptoms worsen Follow-up/Referrals: Benny Neumann MD [Primary Care Provider] - 05/18/19 11:00 am (Your follow-up appt is with MARÍA Araiza @ Dr. Neumann's office) Diet: Heart Healthy Addtl Attending Provider Instructions: You were admitted for what were thought to be changes on your EKG. Cardiology was consulted it was determined this was not related to a cardiac event. Given elevated blood pressure, recommended to start losartan 25mg by mouth daily. You are also being sent with an albuterol inhaler to use as needed for tightness/wheezing. Given your history of asthma as a child and evidence of allergies on examination, it is recommended that you follow up with your primary care provider and have pulmonary function testing as an outpatient. Please continue the Zyrtec too for allergies which can exacerbate your asthma. You should also utilize your omeprazole on a daily basis to help with symptoms of reflux. Please follow up with your primary care provider in the next 3-5 days. Please return to the emergency department if you have any shortness of breath, calve tenderness, chest pain, or for any symptoms that are concerning for you. Pending Studies at Discharge: No Stand-Alone Forms: My [facility] Medications and DC Order Prescriptions: New albuterol sulfate [Ventolin HFA] 90 mcg/actuation Hfa Aerosol Inhaler 2 puff inhalation Q6 PRN (Reason: shortness of breath or wheezing) 30 Days Qty: 6.7 RF: 0 losartan 25 mg tablet 25 mg PO DAILY Qty: 30 RF: 0 cetirizine [Zyrtec] 10 mg tablet 10 mg PO DAILY Qty: 30 RF: 0 Changed omeprazole 20 mg Capsule,Delayed Release(Dr/Ec) 20 mg PO DAILY Qty: 0 RF: 0 No Action Dulera 100-5 mcg/actuation HFA aerosol inhaler 2 puffs INH BID RF: 0 Discharge Orders: Discharge Order (Routine); Ordered 05/15/19 Ordered By: Chely Lee Admission Data Admit Date/Time: 05/14/19 19:47 Attending Provider: Chely Lee Admit Provider: Garrick Agarwal Primary Care Provider: Benny Neumann Other Providers: Benny Feliciano Other Interventions: Discharge Summary Assessment (RN) Last Done: 05/15/19 16:03 DC Date/Time DO NOT enter until pt leaves facility: 05/15/19 17:07 Supervising Physician Co-Signing Physician Notes PA Supervision Note: I personally saw and examined the patient. I verified all jane points and agree with ISAI Gonsales with the following exceptions and/or additions: Pt much improved with addition of Zyrtec. No further SOB, suspect asthma-related symptoms and allergies. Cardiac workup as above. Pt also mentions right groin pain ongoing for several months after straining for lifting. Stable for dc to home Recommend outpt f/u on suspected right inguinal hernia and possible Surgery consultation--> discussed with patient prior to discharge VSS NAD, AAOx3 RRR no mgr CTAB no wcr ABd +BS soft NT ND, +inguinal hernia on right palpated through inguinal canal, GUL normal scrotum, testes and penis, no masses Ext no calf tenderness or edema Coding Level of Care Code D/C Day Management >30 mins Diagnoses Non-ST elevation GA (NSTEMI) I21.4 Asthma J45.909 Hyperlipidemia E78.5 GERD (gastroesophageal reflux disease) K21.9 Hypertension I10 Inguinal hernia K40.90
[2019-05-15 15:36] VITALS: BP 117/68; O2SAT 94
[2019-05-15 16:04] VITALS: PULSE 63
--- NOTE | 2019-05-15 18:24 | Electrocardiogram Report ---
Test Reason : Blood Pressure : / mmHG Vent. Rate : 074 BPM Atrial Rate : 074 BPM P-R Int : 230 ms QRS Dur : 084 ms QT Int : 406 ms P-R-T Axes : 049 032 115 degrees QTc Int : 450 ms Sinus rhythm with 1st degree A-V block with Fusion complexes Abnormal ECG No previous ECGs available Confirmed by Hiren Chan ([id number]) on 05/15/2019 6:23:44 PM Referred By: REFERRED SELF Confirmed By:Alejandro Chan
--- NOTE | 2019-05-15 18:33 | Electrocardiogram Report ---
Test Reason : Blood Pressure : / mmHG Vent. Rate : 064 BPM Atrial Rate : 064 BPM P-R Int : 226 ms QRS Dur : 080 ms QT Int : 430 ms P-R-T Axes : 031 003 139 degrees QTc Int : 443 ms Sinus rhythm with 1st degree A-V block T wave abnormality, consider lateral ischemia Abnormal ECG When compared with ECG of 14-MAY-2019 17:14, (unconfirmed) Fusion complexes are no longer Present Confirmed by Hiren Chan ([id number]) on 05/15/2019 6:33:22 PM Referred By: REFERRED SELF Confirmed By:Alejandro Chan
[2019-05-16] MEDS ORDERED: lisinopriL 20 MG TAB PO SCH (09:00)
--- NOTE | 2019-05-22 10:05 | Coding Query ---
To promote full compliance with coding requirements relating to patient care, provider participation is requested in all cases of bakery helper uncertainty. Please assist us with the question(s) below: Coding Question(s): PLEASE CLARIFY IF THE PATIENT'S PRINCIPAL DIAGNOSIS WAS: Physician's Response(s): NSTEMI ( ) Diagnosed and POA ( ) Diagnosed and not POA ( ) Ruled out ( ) Other (please specify) NSTEMI TYPE 2 ( ) Diagnosed and POA ( ) Diagnosed and not POA ( ) Ruled out ( ) Other (please specify) DEMAND ISCHEMIA (x ) Diagnosed and POA ( ) Diagnosed and not POA ( ) Ruled out ( ) Other (please specify) OTHER DIAGNOSIS, PLEASE EXPLAIN: Thank you for your time, STACI Cerna, TABULATING CLERK SUGE[employer]
== END 2019-05-15 17:07 | disposition home or self-care (01) | DRG 311 ==
LOC: ED 16:59 → 2S 19:40 → SUATTDRO 19:47 → INTOOBSV 19:47 → 2S 19:47